=== PATIENT | male | born 1975 | race Caucasian/White ===

== ENCOUNTER 2018-02-11 20:16 | Inpatient (IN) ==
[2018-02-11] MEDS ORDERED: Aspirin 81 MG TAB.CHEW PO ONE (20:21)
--- NOTE | 2018-02-11 20:24 | Emergency Department Note ---
Disposition Clinical Impression: Pancreatitis Qualifiers: Chronicity: acute Pancreatitis type: idiopathic Acute pancreatitis complication: unspecified Qualified Code(s): K85.00 - Idiopathic acute pancreatitis without necrosis or infection Chest pain Qualifiers: Chest pain type: unspecified Qualified Code(s): R07.9 - Chest pain, unspecified Pneumonia Qualifiers: Pneumonia type: due to unspecified organism Laterality: right Lung location: unspecified part of lung Qualified Code(s): J18.9 - Pneumonia, unspecified organism Disposition: Admitted As Inpatient Condition: Undetermined Time of Disposition: 23:29 (Dr Alvarez accepted him) Chest Pain HPI - General Chief Complaint: ED Chest Pain Stated Complaint: chest pain and vomiting Time Seen by Provider: 02/11/18 20:21 Source: patient Vital Signs Reviewed: Yes Nursing Notes Reviewed: Yes - History of Present Illness HPI Narrative: Patient is a pleasant 42-year-old male with past medical history significant for HTN, DM, obesity and tobacco abuse who is presenting to [facility] Emergency Room with a chief complaint off nausea, vomiting and diarrhea associated with chest pain x 3 days. Pt is very dehydrated and weak. He denies any recent ETOH or street drugs. No recent eating in restaurant or left over food. His urged him to come to the ER. Patient denies any fever, chills or night sweats. Pt also denies any eye pain or visual disturbances. There is no sore throat, nasal drainages or facial congestion. There is no palpitations or racing heart. Pt also denies any shortness of breath, cough or chest congestion. There is no urgency, frequency or dysuria. There is no muskulo- skeletal pain, arthralgia or back pain. Patient also denies any rash, edema or pruritus. There is no neurological manifestations, no headache, no vertigo or weakness. The patient also denies any anxiety, depression, hallucinations and has no homicidal or suicidal ideations. There is no polyuria, polydipsia or recent weight change. There is no easy bruising or bleeding. Review of other systems is otherwise negative except above. Pt complaint: chest pain, other (abd pain) Onset (ago): day(s) Duration: gradually worsening Onset: during rest Pain Location: substernal Severity: severe - Related Data Home Medications Medication Instructions Recorded Confirmed Bone Meal/Vitamin D2 [Bone 1 each PO BID 02/11/18 02/11/18 Meal-Vitamin D Tablet] Cetirizine HCl [Zyrtec] 10 mg PO QAM 02/11/18 02/11/18 HYDROcodone/Acet 10/325 mg [[place] 1 tab PO Q8HR PRN 02/11/18 02/11/18 10-325 mg] Ibuprofen [Motrin] 800 mg PO Q8HR 02/11/18 02/11/18 Insulin Glargine,Hum.rec.anlog 40 unit SQ HS 02/11/18 02/11/18 [Lantus Solostar] Insulin LISPRO [HumaLOG] 0 units SQ TIDWM 02/11/18 02/11/18 Lovastatin [Altoprev] 40 mg PO QAM 02/11/18 02/11/18 Methocarbamol [Robaxin-750] 750 mg PO TID 02/11/18 02/11/18 Pregabalin [Lyrica] 150 mg PO TID 02/11/18 02/11/18 Ranitidine HCl [Acid Veneer Marker] 150 mg PO BID 02/11/18 02/11/18 Sertraline [Zoloft] 100 mg PO DAILY 02/11/18 02/11/18 metFORMIN [Glucophage] 1,000 mg PO BIDWM 02/11/18 02/11/18 traZODone [TraZODone] 100 mg PO HS 02/11/18 02/11/18 Previous Rx's Medication Instructions Recorded Azithromycin [Azithromycin 6-Tab 250 mg PO PER PKG DI #6 tab 01/29/18 Pack] Benzonatate [Tessalon] 100 mg PO TID #15 capsule 01/29/18 PredniSONE [Deltasone] 20 mg PO DAILY #12 tablet 01/29/18 Allergies Allergy/AdvReac Type Severity Reaction Status Date / Time Sulfa (Sulfonamide AdvReac Hives Verified 01/29/18 14:18 Antibiotics) All systems ED: reviewed and negative except as stated. Review of Systems: As Per HPI Constitutional: Denies: fever, chills, weakness, weight change Eyes: Denies: eye pain, eye discharge, vision change ENT ED: Denies: ear pain, throat pain, dental pain, hearing loss, epistaxis, congestion, dysphagia Cardiovascular: Denies: chest pain, palpitations, dyspnea on exertion, edema, syncope Respiratory: Denies: cough, dyspnea, wheezes, hemoptysis, stridor Gastrointestinal: Reports: abdominal pain, nausea, vomiting, diarrhea. Denies: constipation, hematemesis, melena, hematochezia Genitourinary: Denies: urgency, dysuria, frequency, hematuria Musculoskeletal: Denies: back pain, neck pain, arthralgia, myalgia Integumentary: Denies: rash, abrasion, lesions Neurological: Denies: headache, weakness, numbness, paresthesias, confusion, abnormal gait, vertigo Psychiatric: Denies: anxiety, depression, suicidal thoughts, homicidal thoughts, auditory hallucinations, visual hallucinations Endocrine: Denies: fatigue Hematological/Lymphatic: Denies: easy bleeding, easy bruising Allergic/Immunologic: Denies: facial swelling, urticaria Chest Pain PMH - Past Medical History Medical history: Reports: COPD Surgical history: Reports: no surgical history Psychiatric history: Reports: no psych history - Social History Smoking Status: Current every day smoker Alcohol use: Reports: none Drug use: Reports: none Physical Exam - General Limitations: no limitations General appearance: alert, in distress - Head Head exam: atraumatic, normocephalic, normal inspection - Eye Eye exam: Present: normal appearance, PERRL, EOMI - Expanded Eye Exam Pupils: Left: reactive - ENT ENT exam: normal exam, normal oropharynx, mucous membranes moist - Expanded ENT Exam External ear exam: Present: normal external inspection Mouth exam: Present: normal external inspection Teeth exam: Present: normal inspection Throat exam: Present: normal inspection - Neck Neck exam: Present: normal inspection, full ROM, trachea midline - Chest Chest inspection: Present: normal inspection, symmetric chest wall rise - Respiratory Respiratory exam: Present: normal lung sounds bilaterally - Cardiovascular Cardiovascular exam: Present: regular rate, normal rhythm, normal heart sounds - Abdominal Exam Abdominal exam: Present: soft, tenderness, normal bowel sounds. Absent: Non-Tender, distention, guarding, rebound, rigidity - Extremities Exam Extremities exam: Present: normal inspection, full ROM. Absent: tenderness, pedal edema - Expanded Upper Extremity Exam Shoulder exam: Present: normal inspection, full ROM Arm exam: Present: normal inspection, full ROM Elbow exam: Present: normal inspection, full ROM Forearm/Wrist exam: Present: normal inspection, full ROM Hand exam: Present: normal inspection, full ROM Vascular exam: Normal: capillary refill, radial pulse - Expanded Lower Extremity Exam Hip/Pelvis exam: Present: normal inspection, full ROM Upper leg exam: Present: normal inspection, full ROM Knee exam: Present: normal inspection, full ROM Lower leg exam: Present: normal inspection, full ROM Ankle exam: Present: normal inspection, full ROM Foot/toe exam: Present: normal inspection, full ROM Neurovascular/Tendon exam: Absent: motor deficit, sensory deficit, tendon defic it - Back Exam Back exam: Present: normal inspection, full ROM. Absent: tenderness - Neurological Exam Neurological exam: Present: alert, oriented X3 - Expanded Neurological Exam Patient oriented to: Present: person, place, time Coma Scale Eye Opening: Spontaneous Coma Scale Motor Response: Obeys Commands Coma Scale Verbal Response: Oriented Coma Scale Total: 15 - Psychiatric Psychiatric exam: Present: normal affect, normal mood - Skin Skin exam: Present: warm, dry, intact, normal color Course Vital Signs Temperature 98.7 F 02/11/18 20:24 Pulse Rate 82 02/11/18 20:24 Respiratory Rate 18 02/11/18 20:24 Blood Pressure 153/89 02/11/18 20:24 O2 Sat by Pulse Oximetry 95 02/11/18 20:24 Temperature 98.7 F 02/11/18 20:24 Pulse Rate 85 02/11/18 21:45 Respiratory Rate 18 02/11/18 21:45 Blood Pressure 153/72 02/11/18 21:45 O2 Sat by Pulse Oximetry 92 02/11/18 21:45 Oxygen Delivery Oxygen Delivery Room Air Chest Pain - Differential Diagnosis Likely: chest pain, biliary colic - Medical Records Medical records reviewed: Yes I reviewed the patient's medical records. - Lab Data Lab results reviewed: Yes I reviewed the patient's lab results. Result diagrams: 02/11/18 20:49 02/11/18 20:52 Lab Results 02/11/18 02/11/18 02/11/18 Range/Units 20:49 20:49 20:49 WBC (4.3-11.1) K/mcL RBC (4.19-5.50) M/mcL Hgb (12.9-16.9) g/dL Hct (37.5-50.1) % MCV (83.0-100.0) fL MCH (28.0-33.3) pg MCHC (31.6-35.5) g/dL RDW (11.5-14.5) % Plt Count (140-400) K/mcL MPV (9.4-12.4) fL Immature Gran % (0-4) % Seg Neutrophils % % Lymphocytes % % Monocytes % % Eosinophils % % Basophils % % Neutrophils # (1.6-8.9) K/mcL Lymphocytes # (0.6-4.6) K/mcL Monocytes # (0.0-1.3) K/mcL Eosinophils # (0.0-0.6) K/mcL Basophils # (0.0-0.2) K/mcL PT 13.0 H (9.4-12.1) Seconds INR 1.2 APTT 38.3 H (26.0-36.0) Seconds D-Dimer 886 H (0-500) ng/mLFEU Sodium (136-145) mEq/L Potassium (3.5-5.1) mEq/L Chloride (98-107) mEq/L Carbon Dioxide (23-29) mEq/L BUN (6-20) mg/dL Creatinine (0.70-1.30) mg/dL Est GFR ( Amer) (> 60) Est GFR (Non-Af Amer) (> 60) BUN/Creatinine Ratio (6-26) Glucose (70-105) mg/dL Calculated Osmolality (280-300) Calcium (8.6-10.3) mg/dL Total Bilirubin (0.3-1.0) mg/dL Direct Bilirubin (0.0-0.2) mg/dL AST (13-39) Units/L ALT (7-52) Units/L Alkaline Phosphatase (34-104) Units/L Troponin I (< 0.04) ng/mL B-Natriuretic Peptide 17 (Less than 100) pg/mL Serum Total Protein (6.4-8.9) g/dL Albumin (3.5-5.7) g/dL Globulin (2.4-3.5) g/dL Albumin/Globulin Ratio (1.1-2.2) Lipase > 1800 H (11-82) Units/L Beta-Hydroxybutyric Acd (0.02-0.27) mmol/L Urine Color (Yellow) Urine Clarity (Clear) Urine pH (5.0-8.0) pH Units Ur Specific [place] (1.010-1.025) Urine Protein (Neg-Trace) mg/dL Urine Glucose (UA) (Normal) mg/dL Urine Ketones (Negative) mg/dL Urine Blood (Negative) Urine Nitrite (Negative) Urine Bilirubin (Negative) Urine Urobilinogen (Normal) mg/dL Ur Leukocyte Esterase (Negative) Ur Culture Indicated? (NO) Urine Opiates Screen (Luwmvp=755) ng/mL Ur Oxycodone Screen (Cutoff= 100) ng/mL Ur Barbiturates Screen (Mkzmxl=789) ng/mL Ur Phencyclidine Scrn (Cutoff=25) ng/mL Ur Amphetamines Screen (Zdptes=5682) ng/mL U Benzodiazepines Scrn (Yoojie=033) ng/mL Urine Cocaine Screen (Cutoff= 300) ng/mL U Marijuana (THC) Screen (Cutoff = 50) ng/mL Ur Drug Screen Interp 02/11/18 02/11/18 02/11/18 Range/Units 20:49 20:49 20:52 WBC 17.7 H (4.3-11.1) K/mcL RBC 4.62 (4.19-5.50) M/mcL Hgb 13.5 (12.9-16.9) g/dL Hct 38.7 (37.5-50.1) % MCV 83.8 (83.0-100.0) fL MCH 29.2 (28.0-33.3) pg MCHC 34.9 (31.6-35.5) g/dL RDW 12.3 (11.5-14.5) % Plt Count 328 (140-400) K/mcL MPV 11.5 (9.4-12.4) fL Immature Gran % 0.6 (0-4) % Seg Neutrophils % 90.9 % Lymphocytes % 3.6 % Monocytes % 2.4 % Eosinophils % 2.3 % Basophils % 0.2 % Neutrophils # 16.1 H (1.6-8.9) K/mcL Lymphocytes # 0.6 (0.6-4.6) K/mcL Monocytes # 0.4 (0.0-1.3) K/mcL Eosinophils # 0.4 (0.0-0.6) K/mcL Basophils # 0.0 (0.0-0.2) K/mcL PT (9.4-12.1) Seconds INR APTT (26.0-36.0) Seconds D-Dimer (0-500) ng/mLFEU Sodium 130 L (136-145) mEq/L Potassium 4.3 (3.5-5.1) mEq/L Chloride 95 L (98-107) mEq/L Carbon Dioxide 18 L (23-29) mEq/L BUN 9 (6-20) mg/dL Creatinine 0.81 (0.70-1.30) mg/dL Est GFR ( Amer) > 60 (> 60) Est GFR (Non-Af Amer) > 60 (> 60) BUN/Creatinine Ratio 11 (6-26) Glucose 522 H* (70-105) mg/dL Calculated Osmolality 292 (280-300) Calcium 10.7 H (8.6-10.3) mg/dL Total Bilirubin 0.9 (0.3-1.0) mg/dL Direct Bilirubin (0.0-0.2) mg/dL AST 48 H (13-39) Units/L ALT 27 (7-52) Units/L Alkaline Phosphatase 221 H (34-104) Units/L Troponin I < 0.03 (< 0.04) ng/mL B-Natriuretic Peptide (Less than 100) pg/mL Serum Total Protein 8.1 (6.4-8.9) g/dL Albumin 4.1 (3.5-5.7) g/dL Globulin 4.0 H (2.4-3.5) g/dL Albumin/Globulin Ratio 1.0 L (1.1-2.2) Lipase (11-82) Units/L Beta-Hydroxybutyric Acd (0.02-0.27) mmol/L Urine Color (Yellow) Urine Clarity (Clear) Urine pH (5.0-8.0) pH Units Ur Specific [place] (1.010-1.025) Urine Protein (Neg-Trace) mg/dL Urine Glucose (UA) (Normal) mg/dL Urine Ketones (Negative) mg/dL Urine Blood (Negative) Urine Nitrite (Negative) Urine Bilirubin (Negative) Urine Urobilinogen (Normal) mg/dL Ur Leukocyte Esterase (Negative) Ur Culture Indicated? (NO) Urine Opiates Screen (Fseftb=167) ng/mL Ur Oxycodone Screen (Cutoff= 100) ng/mL Ur Barbiturates Screen (Tgxppu=738) ng/mL Ur Phencyclidine Scrn (Cutoff=25) ng/mL Ur Amphetamines Screen (Dqehuk=5384) ng/mL U Benzodiazepines Scrn (Uwofgn=672) ng/mL Urine Cocaine Screen (Cutoff= 300) ng/mL U Marijuana (THC) Screen (Cutoff = 50) ng/mL Ur Drug Screen Interp 02/11/18 02/11/18 02/11/18 Range/Units 20:52 20:52 21:19 WBC (4.3-11.1) K/mcL RBC (4.19-5.50) M/mcL Hgb (12.9-16.9) g/dL Hct (37.5-50.1) % MCV (83.0-100.0) fL MCH (28.0-33.3) pg MCHC (31.6-35.5) g/dL RDW (11.5-14.5) % Plt Count (140-400) K/mcL MPV (9.4-12.4) fL Immature Gran % (0-4) % Seg Neutrophils % % Lymphocytes % % Monocytes % % Eosinophils % % Basophils % % Neutrophils # (1.6-8.9) K/mcL Lymphocytes # (0.6-4.6) K/mcL Monocytes # (0.0-1.3) K/mcL Eosinophils # (0.0-0.6) K/mcL Basophils # (0.0-0.2) K/mcL PT (9.4-12.1) Seconds INR APTT (26.0-36.0) Seconds D-Dimer (0-500) ng/mLFEU Sodium (136-145) mEq/L Potassium (3.5-5.1) mEq/L Chloride (98-107) mEq/L Carbon Dioxide (23-29) mEq/L BUN (6-20) mg/dL Creatinine (0.70-1.30) mg/dL Est GFR ( Amer) (> 60) Est GFR (Non-Af Amer) (> 60) BUN/Creatinine Ratio (6-26) Glucose (70-105) mg/dL Calculated Osmolality (280-300) Calcium (8.6-10.3) mg/dL Total Bilirubin 0.9 (0.3-1.0) mg/dL Direct Bilirubin 0.2 (0.0-0.2) mg/dL AST (13-39) Units/L ALT (7-52) Units/L Alkaline Phosphatase (34-104) Units/L Troponin I (< 0.04) ng/mL B-Natriuretic Peptide (Less than 100) pg/mL Serum Total Protein (6.4-8.9) g/dL Albumin (3.5-5.7) g/dL Globulin (2.4-3.5) g/dL Albumin/Globulin Ratio (1.1-2.2) Lipase (11-82) Units/L Beta-Hydroxybutyric Acd > 2.00 H (0.02-0.27) mmol/L Urine Color Yellow (Yellow) Urine Clarity Clear (Clear) Urine pH 6.0 (5.0-8.0) pH Units Ur Specific [place] 1.015 (1.010-1.025) Urine Protein Negative (Neg-Trace) mg/dL Urine Glucose (UA) >=1000 H (Normal) mg/dL Urine Ketones 80 H (Negative) mg/dL Urine Blood Negative (Negative) Urine Nitrite Negative (Negative) Urine Bilirubin Negative (Negative) Urine Urobilinogen Normal (Normal) mg/dL Ur Leukocyte Esterase Negative (Negative) Ur Culture Indicated? NO (NO) Urine Opiates Screen (Qvejtp=304) ng/mL Ur Oxycodone Screen (Cutoff= 100) ng/mL Ur Barbiturates Screen (Blfwlv=997) ng/mL Ur Phencyclidine Scrn (Cutoff=25) ng/mL Ur Amphetamines Screen (Eatnxo=9845) ng/mL U Benzodiazepines Scrn (Hwyjlf=900) ng/mL Urine Cocaine Screen (Cutoff= 300) ng/mL U Marijuana (THC) Screen (Cutoff = 50) ng/mL Ur Drug Screen Interp 02/11/18 Range/Units 21:25 WBC (4.3-11.1) K/mcL RBC (4.19-5.50) M/mcL Hgb (12.9-16.9) g/dL Hct (37.5-50.1) % MCV (83.0-100.0) fL MCH (28.0-33.3) pg MCHC (31.6-35.5) g/dL RDW (11.5-14.5) % Plt Count (140-400) K/mcL MPV (9.4-12.4) fL Immature Gran % (0-4) % Seg Neutrophils % % Lymphocytes % % Monocytes % % Eosinophils % % Basophils % % Neutrophils # (1.6-8.9) K/mcL Lymphocytes # (0.6-4.6) K/mcL Monocytes # (0.0-1.3) K/mcL Eosinophils # (0.0-0.6) K/mcL Basophils # (0.0-0.2) K/mcL PT (9.4-12.1) Seconds INR APTT (26.0-36.0) Seconds D-Dimer (0-500) ng/mLFEU Sodium (136-145) mEq/L Potassium (3.5-5.1) mEq/L Chloride (98-107) mEq/L Carbon Dioxide (23-29) mEq/L BUN (6-20) mg/dL Creatinine (0.70-1.30) mg/dL Est GFR ( Amer) (> 60) Est GFR (Non-Af Amer) (> 60) BUN/Creatinine Ratio (6-26) Glucose (70-105) mg/dL Calculated Osmolality (280-300) Calcium (8.6-10.3) mg/dL Total Bilirubin (0.3-1.0) mg/dL Direct Bilirubin (0.0-0.2) mg/dL AST (13-39) Units/L ALT (7-52) Units/L Alkaline Phosphatase (34-104) Units/L Troponin I (< 0.04) ng/mL B-Natriuretic Peptide (Less than 100) pg/mL Serum Total Protein (6.4-8.9) g/dL Albumin (3.5-5.7) g/dL Globulin (2.4-3.5) g/dL Albumin/Globulin Ratio (1.1-2.2) Lipase (11-82) Units/L Beta-Hydroxybutyric Acd (0.02-0.27) mmol/L Urine Color (Yellow) Urine Clarity (Clear) Urine pH (5.0-8.0) pH Units Ur Specific [place] (1.010-1.025) Urine Protein (Neg-Trace) mg/dL Urine Glucose (UA) (Normal) mg/dL Urine Ketones (Negative) mg/dL Urine Blood (Negative) Urine Nitrite (Negative) Urine Bilirubin (Negative) Urine Urobilinogen (Normal) mg/dL Ur Leukocyte Esterase (Negative) Ur Culture Indicated? (NO) Urine Opiates Screen Positive H (Zzuoai=311) ng/mL Ur Oxycodone Screen Negative (Cutoff= 100) ng/mL Ur Barbiturates Screen Negative (Rqpewb=167) ng/mL Ur Phencyclidine Scrn Negative (Cutoff=25) ng/mL Ur Amphetamines Screen Negative (Wtvide=5579) ng/mL U Benzodiazepines Scrn Negative (Cujril=092) ng/mL Urine Cocaine Screen Negative (Cutoff= 300) ng/mL U Marijuana (THC) Screen Negative (Cutoff = 50) ng/mL Ur Drug Screen Interp See Below - Radiology Data Radiology results reviewed: Yes I reviewed the patient's radiology results. cc: ; ~ CT/CT abd pelvis w iv no oral IMPRESSION: Acute pancreatitis. Fluid surrounds the pancreas without evidence of a focal drainable fluid collection. Right lower lobe consolidation may represent pneumonia. 2 mm nodule within the lingula. Recommend follow-up to document resolution. - EKG Data EKG attestation: Yes I reviewed and interpreted this EKG. EKG shows normal: sinus rhythm Rate: normal Rhythm: NSR [place]/QRS: normal Heart Score - Score History: Slightly Suspicious EKG: Normal Age: Less than 45 Risk Factors: 1-2 risk factors Troponin: Less than normal limit HEART Score Total: 1
[2018-02-11] MEDS ORDERED: Isovue-370 500 ML INFUS..BTL IV ONE (20:45)
[2018-02-11] MEDS ORDERED: 0.9 % Sodium Chloride 1,000 ML IVC ONE ×2 (20:46→22:24)
[2018-02-11 21:00] LABS: Basophils % 0.2 %; Eosinophils # 0.4 K/mcL (0.0-0.6); Eosinophils % 2.3 %; Hematocrit 38.7 % (37.5-50.1); Hemoglobin 13.5 g/dL (12.9-16.9); Immature Granulocytes % 0.6 % (0-4); Lymphocytes # 0.6 K/mcL (0.6-4.6); Lymphocytes % 3.6 %; Mean Corpuscular HGB Conc 34.9 g/dL (31.6-35.5); Mean Corpuscular Hemoglobin 29.2 pg (28.0-33.3); Mean Corpuscular Volume 83.8 fL (83.0-100.0); Mean Platelet Volume 11.5 fL (9.4-12.4); Monocytes # 0.4 K/mcL (0.0-1.3); Monocytes % 2.4 %; Neutrophils # 16.1 K/mcL (1.6-8.9); Platelet Count 328 K/mcL (140-400); Red Blood Count 4.62 M/mcL (4.19-5.50); Red Cell Distribution Width 12.3 % (11.5-14.5); Segmented Neutrophils % 90.9 %
[2018-02-11 21:17] LABS: INR 1.2
[2018-02-11 21:20] LABS: Activated Partial Thrombo Time 38.3 Seconds (26.0-36.0)
[2018-02-11 21:49] LABS: Bilirubin,Urine Negative (Negative); Blood,Urine Negative (Negative); Clarity,Urine Clear (Clear); Color,Urine Yellow (Yellow); Glucose,Urine (UA) >=1000 mg/dL (Normal); Ketones,Urine 80 mg/dL (Negative); Leukocyte Esterase,Urine Negative (Negative); Nitrite,Urine Negative (Negative); Protein,Urine Negative (Neg-Trace); Specific Gravity,Urine 1.015 (1.010-1.025); Urobilinogen,Urine Normal (Normal)
[2018-02-11 21:58] LABS: Amphetamine Screen,Urine Negative ng/mL (Cutoff=1000); Barbiturate Screen,Urine Negative ng/mL (Cutoff=200); Benzodiazepines Screen,Urine Negative ng/mL (Cutoff=200); Cannabinoid Screen,Urine Negative ng/mL (Cutoff = 50); Cocaine Screen,Urine Negative ng/mL (Cutoff= 300); Opiate Screen,Urine Positive ng/mL (Cutoff=300); Phencyclidine Screen,Urine Negative ng/mL (Cutoff=25)
[2018-02-11 22:17] LABS: Bilirubin,Direct 0.2 mg/dL (0.0-0.2); Bilirubin,Total 0.9 mg/dL (0.3-1.0)
[2018-02-11 22:27] LABS: Alanine Aminotransferase 27 Units/L (7-52); Albumin 4.1 g/dL (3.5-5.7); Alkaline Phosphatase 221 Units/L (34-104); Aspartate Amino Transferase 48 Units/L (13-39); BUN/Creatinine Ratio 11 (6-26); Bilirubin,Total 0.9 mg/dL (0.3-1.0); Blood Urea Nitrogen 9 mg/dL (6-20); Calcium 10.7 mg/dL (8.6-10.3); Carbon Dioxide 18 mEq/L (23-29); Chloride 95 mEq/L (98-107); Glucose 522 mg/dL (70-105); Osmolality,Calculated 292 (280-300); Potassium 4.3 mEq/L (3.5-5.1); Sodium 130 mEq/L (136-145); Total Protein 8.1 g/dL (6.4-8.9); eGFR For Non-African Americans > 60 (> 60)
[2018-02-11] MEDS ORDERED: Insulin Human Regular 10 UNIT in 0.9 % Sodium Chloride 10 ML IV ONE (22:51)
[2018-02-11] MEDS ORDERED: *HR* Morphine 2 MG/ML SYRINGE IVP ONE (22:52)
[2018-02-11] MEDS ORDERED: 0.9 % Sodium Chloride 1,000 ML IVC SCH (23:45)
[2018-02-11] MEDS ORDERED: Naloxone 0.4 MG/ML INJ IVP PRN (23:48)
[2018-02-12 00:04] LABS: VBG HCO3 17 mEq/L (21-27); VBG PCO2 32 mmHg (41-51); VBG PH 7.33 pH Units (7.32-7.42); VBG PO2 220 mmHg (25-50)
[2018-02-12] MEDS ORDERED: Gabapentin 300 MG CAPSULE PO ONE ×2 (00:32→00:50)
[2018-02-12] MEDS ORDERED: Azithromycin 250 MG TABLET PO SCH (00:50)
[2018-02-12] MEDS ORDERED: Naloxone 0.4 MG/ML INJ IVP PRN (00:50)
[2018-02-12] MEDS ORDERED: *HR* HYDROcodone/Acet 10/325 mg TABLET PO PRN (00:50)
[2018-02-12] MEDS: 0.9 % Sodium Chloride 1,000 ML IVC SCH ×2 (01:25→04:52)
[2018-02-12] MEDS ORDERED: Insulin DETEMIR 100 UNIT/ML per UNIT SQ ONE (02:15)
[2018-02-12 06:09] LABS: Hematocrit 35.7 % (37.5-50.1); Hemoglobin 12.7 g/dL (12.9-16.9); Mean Corpuscular HGB Conc 35.6 g/dL (31.6-35.5); Mean Corpuscular Hemoglobin 29.8 pg (28.0-33.3); Mean Corpuscular Volume 83.8 fL (83.0-100.0); Mean Platelet Volume 11.3 fL (9.4-12.4); Platelet Count 352 K/mcL (140-400); Red Blood Count 4.26 M/mcL (4.19-5.50); Red Cell Distribution Width 12.3 % (11.5-14.5)
[2018-02-12 06:19] LABS: INR 1.3; Prothrombin Time 14.1 Seconds (9.4-12.1)
[2018-02-12 06:22] LABS: Activated Partial Thrombo Time 35.7 Seconds (26.0-36.0)
[2018-02-12 06:27] LABS: BUN/Creatinine Ratio 11 (6-26); Blood Urea Nitrogen 8 mg/dL (6-20); Calcium 9.5 mg/dL (8.6-10.3); Carbon Dioxide 17 mEq/L (23-29); Chloride 101 mEq/L (98-107); Chol/HDL Ratio 8.2 (0-4.9); Cholesterol 140 mg/dL (< 200); Glucose 459 mg/dL (70-105); HDL Cholesterol 17 mg/dL (40-59); LDL Cholesterol,Calculated 51 mg/dL (0-99); Magnesium 1.6 mg/dL (1.6-2.6); Osmolality,Calculated 292 (280-300); Phosphorous 2.8 mg/dL (2.7-4.5); Potassium 3.9 mEq/L (3.5-5.1); Sodium 132 mEq/L (136-145); Triglycerides 362 mg/dL (< 150); eGFR For Non-African Americans > 60 (> 60)
[2018-02-12] MEDS: Insulin LISPRO 300 UNITS/3 ML VIAL SQ SCH ×3 (07:34→16:24)
[2018-02-12] MEDS: Methocarbamol 500 MG TABLET PO SCH ×3 (07:36→23:28)
[2018-02-12] MEDS: Pregabalin 75 MG CAPSULE PO SCH ×3 (07:36→22:13)
[2018-02-12] MEDS: Benzonatate 100 MG CAPSULE PO SCH ×3 (07:36→22:13)
[2018-02-12] MEDS: Famotidine 20 MG TABLET PO SCH ×2 (07:36→22:13)
[2018-02-12] MEDS ORDERED: Insulin LISPRO 300 UNITS/3 ML VIAL SQ SCH (08:00)
[2018-02-12] MEDS ORDERED: Azithromycin 500 MG in D5% in Water 250 ML IVPB SCH (09:00)
[2018-02-12] MEDS ORDERED: Loratadine 10 MG TABLET PO SCH (09:00)
[2018-02-12] MEDS ORDERED: predniSONE 20 MG TABLET PO SCH (09:00)
[2018-02-12] MEDS: *HR* HYDROcodone/Acet 10/325 mg TABLET PO PRN ×3 (09:10→18:30)
[2018-02-12] MEDS: Ondansetron 4 MG/2 ML VIAL IVP PRN ×3 (09:10→18:30)
[2018-02-12] MEDS: VITAMIN D2 PO SCH ×2 (09:11→21:50)
[2018-02-12] MEDS: BONE MEAL PO SCH ×2 (09:11→21:50)
[2018-02-12] MEDS ORDERED: Insulin LISPRO 300 UNITS/3 ML VIAL SQ ONE (09:55)
--- NOTE | 2018-02-12 15:38 | Internal Med History&Physical ---
Date of Encounter: 02/12/18 Time of Encounter: 15:00 Assessment and Plan (1) Pancreatitis Current visit: Yes Status: Acute Etiology not obvious. Continue IV fluids. Antiemetics will be given as needed. Advance diet as tolerated. Qualifiers: Chronicity: acute Pancreatitis type: idiopathic Acute pancreatitis complication: unspecified Qualified Code(s): K85.00 - Idiopathic acute pancreatitis without necrosis or infection (2) Pneumonia Current visit: Yes Status: Acute He was given Zithromax in emergency room. Add Rocephin and lactobacillus. Qualifiers: Pneumonia type: due to unspecified organism Laterality: right Lung location: unspecified part of lung Qualified Code(s): J18.9 - Pneumonia, unspecified organism (3) DM type 2 (diabetes mellitus, type 2) Current visit: Yes Status: Chronic Hemoglobin A1c was 8.3% on 12/12/2017. Continue Lantus/Levemir and Glucophage with Accu-Cheks and SSI. Qualifiers: Diabetes mellitus salvage determiner insulin use: with salvage determiner use Diabetes mellitus complication status: with neurologic complications Diabetes mellitus complication detail: with polyneuropathy Qualified Code(s): E11.42 - Type 2 diabetes mellitus with diabetic polyneuropathy; Z79.4 - long-term (current) use of insulin (4) Hyperlipidemia Current visit: Yes Status: Chronic Lipid profile today showed triglycerides 262, cholesterol 140, LDL 51, HDL 17, and total/HDL ratio of 8.2. Qualifiers: Hyperlipidemia type: unspecified Qualified Code(s): E78.5 - Hyperlipidemia, unspecified Internal Medicine - H&P: HPI Chief complaint: Abdominal pain and vomiting Admitted From: Emergency Dept History of present illness: Mr. Anderson is a 42 year old male who came to emergency room complaining onset of abdominal discomfort and vomiting approximately 3-4 days earlier. He denies hematemesis. He is uncertain if there was small amount of blood in the stool. He denies significant diarrhea. He describes abdominal pain as a diffuse "burning". When he did not improve he came to emergency room and was evaluated and felt to have acute pancreatitis. [facility] was [facility] floor for ongoing care needs. He denies previous episodes of pancreatitis. He states he has not consumed alcohol recently. He had cholecystectomy 2016. He has hyperlipidemia. He has had no abdominal trauma or unusual medication ingestion. His GI history is negative for known disorders of his liver or exocrine pancreas. Past Med Surg Social Fam HX - Past Medical History Medical history: COPD Psychiatric history: no psych history - Past Surgical History Surgical History: no surgical history Additional surgical history: back surgery - Social History Smoking Status: Current every day smoker Smokeless Tobacco Status: No Alcohol use: none Drug use: none Internal Medicine - H&P: Meds Azithromycin [Azithromycin 6-Tab Pack] 250 mg PO PER PKG DI #6 tab 01/29/18 [Rx] Benzonatate [Tessalon] 100 mg PO TID #15 capsule 01/29/18 [Rx] PredniSONE [Deltasone] 20 mg PO DAILY #12 tablet 01/29/18 [Rx] Bone Meal/Vitamin D2 [Bone Meal-Vitamin D Tablet] 1 each PO BID 02/11/18 [History] Cetirizine HCl [Zyrtec] 10 mg PO QAM 02/11/18 [History] HYDROcodone/Acet 10/325 mg [Everson 10-325 mg] 1 tab PO Q8HR PRN 02/11/18 [History] Ibuprofen [Motrin] 800 mg PO Q8HR 02/11/18 [History] Insulin Glargine,Hum.rec.anlog [Lantus Solostar] 40 unit SQ HS 02/11/18 [History] Insulin LISPRO [HumaLOG] 0 units SQ TIDWM 02/11/18 [History] Lovastatin [Altoprev] 40 mg PO QAM 02/11/18 [History] Methocarbamol [Robaxin-750] 750 mg PO TID 02/11/18 [History] Pregabalin [Lyrica] 150 mg PO TID 02/11/18 [History] Ranitidine HCl [Acid Department Chairperson] 150 mg PO BID 02/11/18 [History] Sertraline [Zoloft] 100 mg PO DAILY 02/11/18 [History] metFORMIN [Glucophage] 1,000 mg PO BIDWM 02/11/18 [History] traZODone [TraZODone] 100 mg PO HS 02/11/18 [History] Allergy/AdvReac Type Severity Reaction Status Date / Time Sulfa (Sulfonamide AdvReac Hives Verified 01/29/18 14:18 Antibiotics) All Systems PM: A 10-system review of systems was performed and is negative for pertinent findings except as documented above in the HPI. Review of systems: Gen.: He states he has lost approximately 30 pounds in the past year, uni ntentionally. He reports approximately 10 pounds have been lost in the last 4 days. Cardiovascular: He has history of hypertension but denies MT heart failure DVT or pulmonary embolus. He states he occasionally gets chest tightness on exertion. Respiratory: He has smoked since age 17 up to 2 packs per day. He denies document COPD and does not use home oxygen. He was treated for respiratory inf ection approximately 2 weeks ago with Z-Raf and prednisone. He states he is still coughing with yellow sputum production. GI: As per history of present illness : He denies hematuria or dysuria. He states he had kidney stones over 20 years ago without recurrence. He denies prostate disorders. Neurologic: He denies large distribution strokes or seizures. He has diabetic peripheral neuropathy. Endocrine: He was diagnosed with DM 2 approximately 2013. He checks his sugars periodically at home. He has hyperlipidemia but denies known thyroid disease. Hematology/oncology: Denies blood disorders cancers or anemia Psychiatric: He has anxiety depression [place] skeletal: He has DJD. He had a "laser spine surgery" following an accident when he fell off a mule. He has chronic low back pain. - Constitutional Vitals: Temp Pulse Resp BP Pulse Ox 99.3 F 83 17 131/74 90 02/12/18 15:03 02/12/18 15:03 02/12/18 15:03 02/12/18 15:03 02/12/18 15:03 Exam: Gen.: He is a well-developed overweight male resting in bed who appears in no acute distress HEENT: Head is atraumatic and normocephalic. Eyes: EOMI. There is no scleral icterus. Mouth: Mucosa is moist. Neck: Supple and nontender. There is no thyromegaly or adenopathy noted. Heart: Regular without murmurs gallops or ectopics Lungs: No wheezes or crackles are heard. Abdomen: Bowel sounds are diminished. Abdomen is slightly tender to palpation. No masses or guarding are noted. Extremities: There is no cyanosis edema or clubbing noted. Dorsalis pedis and posttibial pulses are 1-2 over 2 bilaterally. Neurologic: Mental status: He is talkative and a good historian. Cranial nerves: Smile is symmetric. Forehead wrinkles bilaterally. Tongue protrudes midline. EOMI. Motor: There is no pronator drift. Cerebellar: Finger to nose is intact bilaterally. Skin: Warm and dry Internal Med - H&P Results - Labs CBC & Chem 7: 02/12/18 05:56 02/12/18 05:56 Labs: Short CBC 02/11/18 02/12/18 Range/Units 20:49 05:56 WBC 17.7 H 19.0 H (4.3-11.1) K/mcL Hgb 13.5 12.7 L (12.9-16.9) g/dL Hct 38.7 35.7 L (37.5-50.1) % Plt Count 328 352 (140-400) K/mcL Neutrophils # 16.1 H (1.6-8.9) K/mcL BMP 02/11/18 02/12/18 20:52 05:56 Sodium 130 L 132 L Potassium 4.3 3.9 Chloride 95 L 101 Carbon Dioxide 18 L 17 L BUN 9 8 Creatinine 0.81 0.72 Glucose 522 H* 459 H Calcium 10.7 H 9.5 Cardiac Enzymes 02/11/18 Range/Units 20:49 Troponin I < 0.03 (< 0.04) ng/mL Liver Function 02/11/18 02/11/18 Range/Units 20:52 20:52 Total Bilirubin 0.9 0.9 (0.3-1.0) mg/dL Direct Bilirubin 0.2 (0.0-0.2) mg/dL AST 48 H (13-39) Units/L ALT 27 (7-52) Units/L Alkaline Phosphatase 221 H (34-104) Units/L Albumin 4.1 (3.5-5.7) g/dL Urine 02/11/18 Range/Units 21:19 Urine Color Yellow (Yellow) Urine Clarity Clear (Clear) Urine pH 6.0 (5.0-8.0) pH Units Ur Specific Lohman 1.015 (1.010-1.025) Urine Protein Negative (Neg-Trace) mg/dL Urine Glucose (UA) >=1000 H (Normal) mg/dL - ABG Interpretation ABG results: 02/11/18 23:59 VBG pH 7.33 VBG pCO2 32 L VBG pO2 220 H VBG HCO3 17 L - Impressions ITS Impressions Chest X-Ray 02/11/18 20:22 IMPRESSION: Negative portable chest. D/ / Garth Romero MD / Garth Romero MD Interpreting Provider: Garth Romero MD Abdomen/Pelvis CT 02/11/18 20:45 IMPRESSION: Acute pancreatitis. Fluid surrounds the pancreas without evidence of a focal drainable fluid collection. Right lower lobe consolidation may represent pneumonia. 2 mm nodule within the lingula. Recommend follow-up to document resolution. D/ / 02/12/2018 06:48:59 Finesse Gonzalez MD / juana Interpreting Provider: Finesse Gonzalez MD
[2018-02-12] MEDS: 0.45 % Sodium Chloride w/KCl 20 MEQ/1,000 ML MLS IVC SCH ×2 (16:21→23:29)
[2018-02-12] MEDS: cefTRIAXone 1,000 MG in Water for inj. (sterile) 20 ML 10 ML IVP SCH (18:32)
[2018-02-12] MEDS: Levofloxacin 500 MG/100 ML 500 MG/100 ML BAG IVPB SCH (18:38)
[2018-02-12] MEDS ORDERED: Acetaminophen 325 MG TABLET PO PRN (19:34)
[2018-02-12] MEDS ORDERED: Insulin DETEMIR 100 UNIT/ML X5UNITS SQ SCH (21:00)
[2018-02-12] MEDS: traZODone 50 MG TABLET PO SCH (22:13)
[2018-02-12] MEDS: Lactobacillus 1 EACH CAP.SPRINK PO SCH (22:13)
[2018-02-13] MEDS: *HR* Enoxaparin 40 MG/0.4 ML SYRINGE SQ SCH (06:28)
[2018-02-13 06:37] LABS: Basophils # 0.1 K/mcL (0.0-0.2); Basophils % 0.3 %; Eosinophils # 0.6 K/mcL (0.0-0.6); Eosinophils % 2.9 %; Hematocrit 32.2 % (37.5-50.1); Hemoglobin 11.2 g/dL (12.9-16.9); Immature Granulocytes % 1.2 % (0-4); Lymphocytes # 1.9 K/mcL (0.6-4.6); Lymphocytes % 9.5 %; Mean Corpuscular HGB Conc 34.8 g/dL (31.6-35.5); Mean Corpuscular Hemoglobin 29.2 pg (28.0-33.3); Mean Corpuscular Volume 84.1 fL (83.0-100.0); Mean Platelet Volume 11.6 fL (9.4-12.4); Monocytes % 5.3 %; Neutrophils # 15.9 K/mcL (1.6-8.9); Platelet Count 297 K/mcL (140-400); Red Blood Count 3.83 M/mcL (4.19-5.50); Red Cell Distribution Width 12.6 % (11.5-14.5); Segmented Neutrophils % 80.8 %
[2018-02-13 07:43] LABS: Lipase 751 Units/L (11-82)
[2018-02-13 07:44] LABS: Alanine Aminotransferase 16 Units/L (7-52); Albumin 3.1 g/dL (3.5-5.7); Albumin/Globulin Ratio 0.9 (1.1-2.2); Alkaline Phosphatase 156 Units/L (34-104); Aspartate Amino Transferase 14 Units/L (13-39); BUN/Creatinine Ratio 16 (6-26); Bilirubin,Total 0.9 mg/dL (0.3-1.0); Blood Urea Nitrogen 10 mg/dL (6-20); Calcium 9.2 mg/dL (8.6-10.3); Carbon Dioxide 20 mEq/L (23-29); Chloride 101 mEq/L (98-107); Globulin 3.4 g/dL (2.4-3.5); Glucose 311 mg/dL (70-105); Osmolality,Calculated 281 (280-300); Potassium 3.6 mEq/L (3.5-5.1); Sodium 130 mEq/L (136-145); Total Protein 6.5 g/dL (6.4-8.9); eGFR For Non-African Americans > 60 (> 60)
[2018-02-13] MEDS: Lactobacillus 1 EACH CAP.SPRINK PO SCH ×2 (08:27→21:01)
[2018-02-13] MEDS: Famotidine 20 MG TABLET PO SCH (08:27)
[2018-02-13] MEDS: Benzonatate 100 MG CAPSULE PO SCH ×3 (08:27→21:01)
[2018-02-13] MEDS: Pregabalin 75 MG CAPSULE PO SCH ×3 (08:28→21:01)
[2018-02-13] MEDS: Methocarbamol 500 MG TABLET PO SCH ×3 (08:28→21:01)
[2018-02-13] MEDS: cefTRIAXone 1,000 MG in Water for inj. (sterile) 20 ML 10 ML IVP SCH (08:29)
[2018-02-13] MEDS: VITAMIN D2 PO SCH (08:29)
[2018-02-13] MEDS: BONE MEAL PO SCH (08:29)
[2018-02-13] MEDS: Levofloxacin 500 MG/100 ML 500 MG/100 ML BAG IVPB SCH (08:31)
[2018-02-13] MEDS: 0.45 % Sodium Chloride w/KCl 20 MEQ/1,000 ML MLS IVC SCH ×2 (08:34→11:07)
[2018-02-13] MEDS: Insulin LISPRO 300 UNITS/3 ML VIAL SQ SCH ×3 (08:45→17:28)
--- NOTE | 2018-02-13 10:07 | Internal Med Progress Note ---
Date of Encounter: 02/13/18 Time of Encounter: 10:00 - Assessment and plan (1) Pancreatitis Current Visit: Yes Status: Acute Assessment and plan: February 13. Lipase significantly improved at 751. Continue IV fluids, anti-emetics, and advance diet as tolerated. Qualifiers: Chronicity: acute Pancreatitis type: idiopathic Acute pancreatitis complication: unspecified Qualified Code(s): K85.00 - Idiopathic acute pancr eatitis without necrosis or infection (2) Pneumonia Current Visit: Yes Status: Acute Assessment and plan: February 13. Continue Rocephin and Levaquin. Change Zithromax to clindamycin. Qualifiers: Pneumonia type: due to unspecified organism Laterality: right Lung location: unspecified part of lung Qualified Code(s): J18.9 - Pneumonia, unspecified organism (3) DM type 2 (diabetes mellitus, type 2) Current Visit: Yes Status: Chronic Assessment and plan: February 13. Hemoglobin A1c was 8.3% on 12/12/2017. Blood sugars are not adequately controlled at present. Increase Levemir. Continue Glucophage and Accu-Cheks with SSI. Qualifiers: Diabetes mellitus residential insulin use: with long term care pharmacist use Diabetes mellitus complication status: with neurologic complications Diabetes mellitus complication detail: with polyneuropathy Qualified Code(s): E11.42 - Type 2 diabetes mellitus with diabetic polyneuropathy; Z79.4 - half-way (current) use of insulin (4) Hyperlipidemia Current Visit: Yes Status: Chronic Assessment and plan: February 13. Lipid profile 02/12/2018 showed triglycerides 262, cholesterol 140, LDL 51, HDL 17, and total/HDL ratio of 8.2. Continue statin and improve DM2 control. Qualifiers: Hyperlipidemia type: unspecified Qualified Code(s): E78.5 - Hyperlipidemia, unspecified - Subjective Interval history: February 13. He has no new complaints and feels slightly better overall. He has had no further vomiting. - Constitutional Vitals: Temp Pulse Resp BP Pulse Ox 101.3 F H 86 18 160/75 91 02/13/18 08:16 02/13/18 08:16 02/13/18 08:16 02/13/18 08:16 02/13/18 08:16 Exam: He is sitting on the side of bed resting comfortably. He appears in no acute distress. I reviewed his medications and lab results. Internal Medicine: Result - Labs CBC & Chem 7: 02/13/18 05:53 02/13/18 05:53 Labs: Short CBC 02/13/18 Range/Units 05:53 WBC 19.7 H (4.3-11.1) K/mcL Hgb 11.2 L D (12.9-16.9) g/dL Hct 32.2 L (37.5-50.1) % Plt Count 297 (140-400) K/mcL Neutrophils # 15.9 H (1.6-8.9) K/mcL BMP 02/13/18 05:53 Sodium 130 L Potassium 3.6 Chloride 101 Carbon Dioxide 20 L BUN 10 Creatinine 0.64 L Glucose 311 H Calcium 9.2 Liver Function 02/13/18 Range/Units 05:53 Total Bilirubin 0.9 (0.3-1.0) mg/dL AST 14 (13-39) Units/L ALT 16 (7-52) Units/L Alkaline Phosphatase 156 H (34-104) Units/L Albumin 3.1 L (3.5-5.7) g/dL - ABG Interpretation ABG results: PT/INR, D-dimer PT 14.1 Seconds (9.4-12.1) H 02/12/18 05:56 D-Dimer 886 ng/mLFEU (0-500) H 02/11/18 20:49 - Impressions Impressions Abdomen/Pelvis CT 02/11/18 20:45 IMPRESSION: Acute pancreatitis. Fluid surrounds the pancreas without evidence of a focal drainable fluid collection. Right lower lobe consolidation may represent pneumonia. 2 mm nodule within the lingula. Recommend follow-up to document resolution. D/ / 02/12/2018 06:48:59 Finesse Gonzalez MD / juana Interpreting Provider: Finesse Gonzalez MD Consult Discharge Plan - Plan Referrals: Jeana Sweeney, [employer] [Primary Care Provider] - 1 week
[2018-02-13] MEDS: Clindamycin 600 MG/50 ML 600 MG/50 ML IV.SOLN IVPB SCH ×2 (11:13→16:37)
[2018-02-13] MEDS: *HR* HYDROcodone/Acet 10/325 mg TABLET PO PRN ×3 (13:15→21:58)
--- NOTE | 2018-02-13 20:02 | Electrocardiograph Report ---
[address] [place], [place] [address] Test Date: 2018-02-11 Pat Name: Jose Anderson Department: [id number] Room: [facility] Gender: M It Consulting Manager: [id number] : 1975 Requested By: Elana Zambrano Order Number: [id number] Reading MD: Yolande Foley Measurements Intervals [place] Rate: 78 P: 43 TN: 145 QRS: 101 QRSD: 173 T: 33 QT: 411 QTc: 444 Interpretive Statements SINUS RHYTHM RIGHT AXIS DEVIATION RIGHT BUNDLE BRANCH BLOCK Electronically Signed On 02-13-2018 20:00:54 EST by Yolande Foley
[2018-02-13] MEDS ORDERED: Insulin DETEMIR 100 UNIT/ML X5UNITS SQ SCH (21:00)
[2018-02-13] MEDS: traZODone 50 MG TABLET PO SCH (21:01)
[2018-02-14] MEDS: *HR* HYDROcodone/Acet 10/325 mg TABLET PO PRN ×2 (01:58→06:35)
[2018-02-14] MEDS: 0.45 % Sodium Chloride w/KCl 20 MEQ/1,000 ML MLS IVC SCH (01:58)
[2018-02-14] MEDS: BONE MEAL PO SCH ×2 (02:02→10:25)
[2018-02-14] MEDS: VITAMIN D2 PO SCH ×2 (02:02→10:25)
[2018-02-14] MEDS: Clindamycin 600 MG/50 ML 600 MG/50 ML IV.SOLN IVPB SCH ×2 (02:05→09:01)
[2018-02-14] MEDS: *HR* Enoxaparin 40 MG/0.4 ML SYRINGE SQ SCH (06:31)
[2018-02-14 06:40] LABS: Basophils # 0.1 K/mcL (0.0-0.2); Basophils % 0.3 %; Eosinophils # 0.7 K/mcL (0.0-0.6); Eosinophils % 3.9 %; Hematocrit 30.8 % (37.5-50.1); Hemoglobin 10.4 g/dL (12.9-16.9); Immature Granulocytes % 0.8 % (0-4); Lymphocytes # 2.5 K/mcL (0.6-4.6); Lymphocytes % 14.8 %; Mean Corpuscular HGB Conc 33.8 g/dL (31.6-35.5); Mean Corpuscular Hemoglobin 28.9 pg (28.0-33.3); Mean Corpuscular Volume 85.6 fL (83.0-100.0); Mean Platelet Volume 11.3 fL (9.4-12.4); Monocytes % 5.8 %; Neutrophils # 12.5 K/mcL (1.6-8.9); Platelet Count 282 K/mcL (140-400); Red Cell Distribution Width 12.5 % (11.5-14.5); Segmented Neutrophils % 74.4 %
[2018-02-14 07:51] VITALS: BP 108/56
[2018-02-14] MEDS: Lactobacillus 1 EACH CAP.SPRINK PO SCH (08:59)
[2018-02-14] MEDS: Pregabalin 75 MG CAPSULE PO SCH (08:59)
[2018-02-14] MEDS: Benzonatate 100 MG CAPSULE PO SCH (09:00)
[2018-02-14] MEDS: Methocarbamol 500 MG TABLET PO SCH (09:00)
[2018-02-14] MEDS: Insulin LISPRO 300 UNITS/3 ML VIAL SQ SCH ×2 (09:00→12:34)
[2018-02-14] MEDS: cefTRIAXone 1,000 MG in Water for inj. (sterile) 20 ML 10 ML IVP SCH (09:01)
--- NOTE | 2018-02-14 09:53 | Discharge Summary ---
Date of Encounter: 02/14/18 Time of Encounter: 09:44 - Discharge Diagnosis (1) Pancreatitis Priority: Primary Status: Acute Qualifiers: Chronicity: acute Pancreatitis type: idiopathic Acute pancreatitis complication: unspecified Qualified Code(s): K85.00 - Idiopathic acute pancreatitis without necrosis or infection (2) Pneumonia Priority: Secondary Status: Acute Qualifiers: Pneumonia type: due to unspecified organism Laterality: right Lung location: unspecified part of lung Qualified Code(s): J18.9 - Pneumonia, unspecified organism (3) DM type 2 (diabetes mellitus, type 2) Priority: Secondary Status: Chronic Qualifiers: Diabetes mellitus penitentiary insulin use: with penitentiary use Diabetes mellitus complication status: with neurologic complications Diabetes mellitus complication detail: with polyneuropathy Qualified Code(s): E11.42 - Type 2 diabetes mellitus with diabetic polyneuropathy; Z79.4 - ocean transportation intermediary (current) use of insulin (4) Hyperlipidemia Priority: Secondary Status: Chronic Qualifiers: Hyperlipidemia type: unspecified Qualified Code(s): E78.5 - Hyperlipidemia, unspecified Hospital course: Mr. Anderson is a 42 year old male who came to emergency room complaining onset of abdominal discomfort and vomiting approximately 3-4 days earlier. He denies hematemesis. He is uncertain if there was small amount of blood in the stool. He denies significant diarrhea. He describes abdominal pain as a diffuse "burning". When he did not improve he came to emergency room and was evaluated and felt to have acute pancreatitis. He was admitted to [facility] for ongoing care needs. Initial orders were written by the emergency room physician. I saw him on February 12 and performed the history and physical. He was given IV fluids and prn anti-emetics. The etiology of pancreatitis was not determined. He had gradual clinical improvement with lipase decreasing to 410 by day of discharge. He had no abdominal pain on February 14 and was able to tolerate adequate amount of food and fluids. He wished to be discharged home which I felt was reasonable. He was initially given Rocephin, Zithromax, and Levaquin for pneumonia. Zithromax was discontinued and clindamycin was started on February 13. WBC improved to 16.8 with resolution of left shift by day of discharge. He will continue with antibiotic and probiotic for 5 additional days at discharge. He will follow with his PCP Jeana Sweeney CNP within 1 week. - Time Spent with Patient Total time spent providing and/or coordinating discharge services: - Discharge Medications Prescriptions: Clindamycin HCl 300 mg PO Q8H #15 capsule Lactobacillus [Culturelle] 1 each PO BID #10 cap.sprink levoFLOXacin [Levaquin] 500 mg PO DAILY #5 tablet Home Medications: Benzonatate [Tessalon] 100 mg PO TID #15 capsule 01/29/18 [Rx] Bone Meal/Vitamin D2 [Bone Meal-Vitamin D Tablet] 1 each PO BID 02/11/18 [History] HYDROcodone/Acet 10/325 mg [Sublimity 10-325 mg] 1 tab PO Q8HR PRN 02/11/18 [History] Ibuprofen [Motrin] 800 mg PO Q8HR 02/11/18 [History] Insulin Glargine,Hum.rec.anlog [Lantus Solostar] 40 unit SQ HS 02/11/18 [History] Insulin LISPRO [HumaLOG] 0 units SQ TIDWM 02/11/18 [History] Lovastatin [Altoprev] 40 mg PO QAM 02/11/18 [History] Methocarbamol [Robaxin-750] 750 mg PO TID 02/11/18 [History] Pregabalin [Lyrica] 150 mg PO TID 02/11/18 [History] Ranitidine HCl [Acid Gas Tender] 150 mg PO BID 02/11/18 [History] Sertraline [Zoloft] 100 mg PO DAILY 02/11/18 [History] metFORMIN [Glucophage] 1,000 mg PO BIDWM 02/11/18 [History] traZODone [TraZODone] 100 mg PO HS 02/11/18 [History] Cetirizine HCl [Zyrtec] 10 mg PO QAM PRN #0 02/14/18 [Rx] Clindamycin HCl 300 mg PO Q8H #15 capsule 02/14/18 [Rx] Lactobacillus [Culturelle] 1 each PO BID #10 cap.sprink 02/14/18 [Rx] levoFLOXacin [Levaquin] 500 mg PO DAILY #5 tablet 02/14/18 [Rx] Allergies/Adverse Reactions: Allergy/AdvReac Type Severity Reaction Status Date / Time Sulfa (Sulfonamide AdvReac Hives Verified 01/29/18 14:18 Antibiotics) Date of admission: 02/12/18 18:20 Primary care physician: Jeana Sweeney CNP - Constitutional Vitals: Temp Pulse Resp BP Pulse Ox 98.3 F 68 18 108/56 94 02/14/18 07:47 02/14/18 07:47 02/14/18 07:47 02/14/18 07:47 02/14/18 07:47 - Patient Status Disposition: Home, Self-Care Condition: Undetermined - Discharge Instructions Follow Up With: Jeana Sweeney CNP [Primary Care Provider] - 1 week - Diet and Activity Activity: resume usual activities as tolerated Diet: diabetic diet
== END 2018-02-14 12:40 | disposition home or self-care (01) | DRG 282 ==
LOC: INPPIK 20:16 → EMEROOPIK 20:16 → INPPIK 02-12 00:30
PROVIDERS: ADMIT Internal Medicine; ATTEND Internal Medicine